=== PATIENT | male | born 1955 | race Caucasian/White ===

== ENCOUNTER → 2022-09-16 | Outpatient (CLI) | payer MEDICARE ==
--- NOTE | 2022-09-16 10:34 | XR ---
EXAMINATION TYPE: XR chest 2V DATE OF EXAM: 09/16/2022 COMPARISON: NONE HISTORY: Tobacco use. Abnormal physical exam. TECHNIQUE: Frontal and lateral views of the chest are obtained. FINDINGS: Background chronic emphysematous changes are present. There is no focal air space opacity, pleural effusion, or pneumothorax seen. The cardiac silhouette size is mildly enlarged with ectatic thoracic aorta. Slight underlying levoconvex scoliosis of the upper to midthoracic spine. IMPRESSION: Mild cardiomegaly and chronic emphysematous change without acute pulmonary process.
== END | disposition home or self-care (01) ==
LOC: RADXRYALE 09:18
PROVIDERS: ATTEND Physician Assistant
DX: J43.9 Emphysema, unspecified (principal); R06.89 Other abnormalities of breathing; Z87.891 Personal history of nicotine dependence
CPT/HCPCS: 71046

== ENCOUNTER → 2022-09-24 | Outpatient (CLI) | payer MEDICARE ==
[2022-09-24 07:53] LABS: African American GFR (CKD) >90 (>60 ml/min/1.73 sqM); Blood Urea Nitrogen 18 mg/dL (9-20); Non-African American GFR(CKD) >90 (>60 ml/min/1.73 sqM)
--- NOTE | 2022-09-24 08:27 | CT ---
EXAMINATION TYPE: CT chest wo/w con CT DLP: 950.4 mGycm, Automated exposure control for dose reduction was used. DATE OF EXAM: 09/24/2022 8:18 AM COMPARISON: Chest radiograph from 09/16/2022 CLINICAL INDICATION:Male, 67 years old with history of J98.5, I51.7; PHH, cardiomegaly, mediastinum d isease? TECHNIQUE: Multiple axial images were obtained through the chest before and after the uneventful admi nistration of 100 mL of Isovue-300 intravenously . Coronal and sagittal reformats reviewed. FINDINGS: LUNGS/ PLEURA: No pleural effusion, pneumothorax, focal consolidation. Few scattered calcified granul omas. Minimal paraseptal emphysematous changes. No suspicious pulmonary nodule or mass. AIRWAY: Patent and unremarkable.. HEART: The heart is mildly increased in size.. No pericardial effusion. Mild coronary arterial calcif ications. Minimal pericardial calcification. MEDIASTINUM: No evidence of adenopathy. VASCULATURE: Ascending thoracic aortic aneurysm measuring up to 4.2 cm. MUSCULOSKELETAL: No acute osseous abnormalities. Remote bilateral posterior rib fractures. No aggress steve osseous lesion. SOFT TISSUES/LYMPH NODES: Unremarkable. LOWER NECK: No significant findings. UPPER ABDOMEN: The liver is diffusely hypoattenuating. Calcified granuloma within the liver. IMPRESSION: 1. No acute thoracic process. 2. Minimal emphysematous changes. 3. Ascending thoracic aortic aneurysm measuring up to 4.2 cm. 4. Hepatic steatosis. 5. Mild cardiomegaly. No mediastinal or hilar adenopathy.
== END | disposition home or self-care (01) ==
LOC: RADCTMAIN 07:14
PROVIDERS: ATTEND Family Medicine
DX: I71.21 Aneurysm of the ascending aorta, without rupture (principal); K76.0 Fatty (change of) liver, not elsewhere classified; J43.9 Emphysema, unspecified
CPT/HCPCS: 82565; 84520; 71270; 36415; Q9967

== ENCOUNTER → 2023-10-29 | Outpatient (CLI) | payer MEDICARE ==
[2023-10-29 10:06] LABS: African American GFR (CKD) >90 (>60 ml/min/1.73 sqM); Blood Urea Nitrogen 12 mg/dL (9-20); Non-African American GFR(CKD) >90 (>60 ml/min/1.73 sqM)
--- NOTE | 2023-10-29 11:49 | CT ---
EXAMINATION TYPE: CT angio chest, without and with contrast DATE OF EXAM: 10/29/2023 COMPARISON: 09/24/2022 HISTORY: 68-year-old male I71.20 thoracic aortic aneurysm TECHNIQUE: Contiguous axial scanning of the chest before and after the administration of 100ml mL of Isovue 370. Coronal/sagittal reconstructions performed. 3-D reconstructions generated on a dedicated workstation. CT DLP: 1010mGycm. Automatic exposure control utilized for a dose reduction. FINDINGS: Heart upper limits of normal in size without pericardial effusion. Scattered LAD coronary calcificati ons are present. Borderline ectasia aortic root at 3.5 cm. Mild aneurysm ascending aorta 4.0 cm, unchanged. Conventional arch vessel branching anatomy. Ectasia upper descending thoracic aorta 3.3 cm is unchanged. A few scattered small hilar lymph nodes measuring up to 8 mm likely reactive/post inflammatory. Other english, no thoracic lymphadenopathy by CT size criteria. Diffuse bronchial wall thickening. Emphysematous changes in the upper lungs. No consolidation or pleu ral effusion. Calcified granuloma posterior left lower lobe. Visualized upper abdomen shows no gross abnormality. Bones: No osseous destructive process IMPRESSION: 1. Stable borderline ectasia aortic root at 3.5 cm and mild aneurysm ascending aorta at 4.0 cm. 2. Some scattered LAD coronary artery calcifications. 3. COPD with minimal emphysema.
== END | disposition home or self-care (01) ==
LOC: RADCTMAIN 09:32
PROVIDERS: ATTEND Thoracic Surgery (Cardiothoracic Vascular Surgery)
DX: I71.20 Thoracic aortic aneurysm, without rupture, unspecified (principal); I25.10 Atherosclerotic heart disease of native coronary artery without angina pectoris; J44.9 Chronic obstructive pulmonary disease, unspecified; J43.9 Emphysema, unspecified
CPT/HCPCS: 82565; 84520; 71275; 36415; Q9967